=== PATIENT | female | born 1980 | race Caucasian/White ===

== ENCOUNTER 2016-12-26 10:06 | Observation (INO) | payer OTHER ==
[2016-12-26] MEDS ORDERED: DEXAMETHASONE 4 MG TABLET ONE (10:20)
[2016-12-26] MEDS ORDERED: ALBUTEROL/IPRATROPIUM 2.5/0.5 MG 3 ML/EACH DOSE ONE ×2 (10:28→11:56)
[2016-12-26] MEDS ORDERED: LACTATED RINGERS 1,000 ML ONE (12:28)
[2016-12-26] MEDS ORDERED: ALBUTEROL SULFATE 5MG/ML INHALANT 20 ML BOT ONE (12:43)
[2016-12-26] MEDS ORDERED: IPRATROPIUM BROMIDE 0.5 MG/2.5 ML DOSE ONE (12:43)
[2016-12-26 13:46] LABS: ARTERIAL BLOOD GAS pH 7.581 (7.350-7.450)
[2016-12-26 13:47] LABS: ARTERIAL BLOOD GAS BASE EXCESS -2.7 mmol/L (-2.0-2.0); ARTERIAL BLOOD GAS HCO3 16.4 mmol/L (22.0-28.0); ARTERIAL BLOOD GAS PCO2 17.8 mmHg (35.0-45.0); ARTERIAL BLOOD GAS PO2 80.2 mmHg (80.0-90.0)
[2016-12-26 14:26] LABS: ABSOLUTE NEUTROPHIL COUNT 7.9 K/mm3 (1.8-7.7); BASO # 0.1 K/mm3 (0.0-0.2); BASO % 0.5 % (0.2-1.0); EOS # 0.5 (0.0-0.5); EOS % 5.4 % (0.9-2.9); HEMATOCRIT 42.1 % (37.0-47.0); IMM NEUT% 0.3 % (0-1); LYMPH % 10.1 % (15-45); MEAN CELL VOLUME 93.6 fl (81.0-99.0); MEAN CORPUSCULAR HEMOGLOBIN 31.1 pg (27.0-31.0); MEAN CORPUSCULAR HGB CONC 33.3 g/dl (33.0-37.0); MEAN PLATELET VOLUME 8.7 fl (7.4-10.4); MONO # 0.2 (0.0-0.8); MONO % 2.3 % (4-12); NEUT % 81.4 % (43-75); PLATELET COUNT 298 K/mm3 (130-400); RED CELL DISTRIBUTION WIDTH 12.2 % (11.5-14.5)
[2016-12-26 14:39] LABS: ALB/GLOB RATIO 1.3 (>1.0); ALBUMIN 4.2 gm/dL (3.5-5.7); CALCIUM 10.1 mg/dL (8.6-10.3)
--- NOTE | 2016-12-26 15:58 | RAD ---
12/26/2016 3:54 PM CHEST - 2 VIEWS History: Dyspnea. History of asthma. Comparison: None Findings: Two views of the chest are obtained. The lungs are clear with out effusion or pneumothorax. The cardiomediastinal silhouette is unremarkable.. The osseous structures are intact.. IMPRESSION: No acute intrathoracic process.
[2016-12-26] MEDS ORDERED: ACETAMINOPHEN 325 MG TABLET PO PRN (16:09)
[2016-12-26] MEDS ORDERED: SODIUM CHLORIDE 0.9% 100 ML IV PRN (16:09)
[2016-12-26] MEDS ORDERED: BLISTEX LIPSTICK 1 EACH TP PRN (16:09)
[2016-12-26] MEDS ORDERED: MENTHOL/CETYLPYRD 1 EACH LOZENGE PO PRN (16:09)
[2016-12-26] MEDS ORDERED: MAGNESIUM HYDROXIDE 30 ML UDCUP PO PRN (16:09)
[2016-12-26] MEDS ORDERED: SUMATRIPTAN SUCCINATE 50 MG TABLET PO PRN (16:11)
[2016-12-26] MEDS ORDERED: CYCLOBENZAPRINE HCL 10 MG TABLET PO PRN (16:11)
[2016-12-26 16:13] VITALS: BMI 26.1
[2016-12-26] MEDS ORDERED: HYDROXYZINE HCL 25 MG TABLET PO PRN (16:13)
[2016-12-26] MEDS ORDERED: TRAZODONE HCL 50 MG TABLET PO PRN (16:26)
[2016-12-26] MEDS ORDERED: ALBUTEROL NEB 2.5 MG/3 ML VIAL.NEB NEB PRN (16:34)
[2016-12-26] MEDS: ALBUTEROL/IPRATROPIUM 2.5/0.5 MG 3 ML/EACH DOSE NEB SCH ×2 (17:34→23:03)
--- NOTE | 2016-12-26 17:42 | HP ---
ALICIA HERNÁNDEZ [facility] [id number] DATE OF ADMISSION: 12/26/2016 CHIEF COMPLAINT: Asthma. HISTORY OF PRESENT ILLNESS: The patient is a 36-year-old female with a long history of asthma since childhood, which worsened somewhat in her 20's and 30's. More recently it has worsened over the last month, and she quit smoking a month ago when she was noticing difficulty. She notes her breathing difficulty has been fairly steady. It does not wax and wane substantially. She notes decreased activity tolerance, feels as if she has run a marathon and feeling fatigued. She has not noticed a fever. She has had no sputum produced. No others have been effected by similar symptoms. She notes noisy breathing with wheezing and feels that she gets short of breath if she walks more than a couple of blocks. She had actually seen Urgent Care a couple of weeks ago and had a course of prednisone which may have helped modestly, but she is still having symptoms at this time. She has also used Combivent and uses Symbicort as well. PAST MEDICAL HISTORY: Remarkable for: 1. Asthma. 2. Depression and anxiety. 3. A history of alcoholism, now abstinent for greater than a year, on Antabuse. PAST SURGICAL HISTORY: 1. x 3. 2. Tubal ligation. ALLERGIES: No known drug allergies. MEDICATIONS: 1. Citalopram 20 mg daily. 2. Antabuse 500 mg by mouth every A.M. 3. Combivent as needed. 4. Imitrex as needed. 5. Cyclobenzaprine as needed. 6. Symbicort 80 two puffs twice a day. 7. Trazodone 100 mg at bedtime. 8. Multivitamin. 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 She has been 20 years and has three kids. Her works at [employer]. The kids are 18, 14 and 9. She quit smoking about a month ago. She quit alcohol a year ago. Some remote history of other substance abuse in the remote past, but no inhaled chemicals or other initiating events noted. Hobbies include coloring and her kids. She has a dog part-time. FAMILY HISTORY: Father at 77 of cancer of the lung. Mom at 57 of uterine cancer. REVIEW OF SYSTEMS: HEENT - eyes have been okay. Ears okay. Nose has been okay. Mouth is okay. Neck - okay. Lungs - have given her some respiratory trouble, but she has had no previous hospitalizations for asthma. Heart - she notes that heart will speed-up some and has done this intermittently since she was a child, but has not had any extensive evaluation or been prescribed any medications for this. GI - stomach has been okay. No vomiting, no constipation and no diarrhea. DINING CAR HOP - she is not nursing. She is not . Last month's period was about a month ago. Her periods are generally regular. - no urinary complaints. Extremities - legs have been okay. Arms have been okay. Neurologic - no complaints. PHYSICAL EXAMINATION: GENERAL: Nontoxic female, breathing deeply. VITAL SIGNS: Temperature 97.9. Blood pressure 123/90. Heart rate 125. Respirations 20. Saturation 96% on room air, although follow-up one shows 92% on room air. NECK: Supple. No JVD is noted. LUNGS: Scattered wheezes bilaterally, polyphonic. No crackles are noted. HEART: Tachycardiac, but regular. No murmur is noted. ABDOMEN: Soft, nontender and nondistended. Bowel sounds are normal. No rebound and no guarding. GENITOURINARY: Exam is deferred. BREASTS: Exam is deferred. EXTREMITIES: No cyanosis, clubbing or edema. Pulses are good. Perfusion is good. NEUROLOGIC: Patient is alert. Slightly anxious, but no neurologic deficiency noted. LABS: White count 9.7, hemoglobin 14.0 and platelets 298. D-dimer is less than 0.19. Her pH is 7.581. PC02 is 17.8, P02 of 80.2, bicarbonate 16.4 and base excess -2.7. Sodium 135, potassium 4.5, chloride 104, C02 of 19, BUN of 9, creatinine 0.9 and glucose 91. Calcium is 10.1. LFTs are normal. Troponin less than 0.01. HCG is negative. Lipase is 7. BNP is 10. IMAGING: Chest x-ray on preliminary review is normal. EKG: Pending. ASSESSMENT/PLAN: 1. Exacerbation of moderate persistent asthma, now with respiratory distress. No previous hospitalizations, but has been on prednisone earlier this month. We will be checking peak flows. Plan prednisone. Plan nebulizer treatments. Reassess in the morning. 2. History of alcoholism, with abstinence for the last year. She would like to continue on Antabuse, and this will be ordered. We will try to avoid benzodiazepines or narcotics for now, and consider an antihistamine as needed for anxiety. Will be continuing on the citalopram and consider PRN hydroxyzine. Will be checking an EKG to assess the QT interval because of the possible drug interaction with citalopram and hydroxyzine, but do not anticipate that this should be a problem. 3. History of tachycardia. Check telemetry and a TSH. 4. Code status. The patient is an ambulatory observation patient, so we are not expecting a need for anticoagulation. Code status is anticipated to be full. cc: Dr. Halle Tang
[2016-12-26] MEDS: MONTELUKAST SODIUM 10 MG TABLET PO SCH (17:47)
[2016-12-26] MEDS ORDERED: PNEUMOCOCCAL 23-VAL P-SAC VAC 0.5 ML VIAL IM V ONE (20:00)
[2016-12-26] MEDS ORDERED: FORMOTEROL IH SCH (21:00)
[2016-12-26] MEDS ORDERED: BUDESONIDE IH SCH (21:00)
[2016-12-26] MEDS ORDERED: HYDROCODONE/ACETAMINOPHEN 5/325MG TABLET PO PRN (21:13)
[2016-12-26] MEDS: FLUTICASONE/SALMETEROL 100/50 14 PUFF/EACH DISK IH SCH (21:19)
[2016-12-27] MEDS: ALBUTEROL/IPRATROPIUM 2.5/0.5 MG 3 ML/EACH DOSE NEB SCH ×2 (05:55→11:52)
--- NOTE | 2016-12-27 07:48 | PDOC43 ---
- Subjective Chief Complaint: Asthma Patient reports having some leg cramps last night, did get 2 pain pills, better today. Leg pains are atypical for her. Some headache this am, took an imitrex. VERAS not uncommon for her. Breathing better, Peak flows in the 190-200 range. Predicted is 485 for her, so less than 50%. - Objective Vital Signs Temperature 97.7 F 12/27/16 04:12 Pulse Rate 108 12/27/16 05:00 Respiratory Rate 18 12/27/16 05:29 Blood Pressure 107/75 12/27/16 04:12 O2 Saturation by Pulse Oximetry 96 12/27/16 04:12 Oxygen Delivery Method Room Air Oxygen Flow Rate 0 Vital Signs Last 12 Hours Temp Pulse Resp BP Pulse Ox 12/27/16 05:29 18 12/27/16 05:00 108 24 12/27/16 04:12 97.7 F 88 18 107/75 96 12/27/16 00:21 97.2 F 81 18 103/68 94 12/26/16 23:05 96 18 12/26/16 22:21 20 Intake and Output 12/25/16 12/26/16 12/27/16 23:59 23:59 23:59 Intake Total 200 Output Total 300 500 Balance -300 -300 General: Alert, Cooperative, No Acute Distress Lungs: Other (bilat wheezes, improved. Work of breathing appears much better.) Cardiovascular: Regular Rate and Rhythm Abdomen: Soft, Normal Bowel Sounds, Non-Distended Extremities: No Edema, No Tenderness Neurological: Normal Speech Psych/Mental Status: Normal Affect, Normal Mood No labs ordered for today. Current Medications: Current meds reviewed in EMR. Active Medications Acetaminophen (Tylenol) 650 mg PO Q6H PRN PRN Reason: Pain or Temperature > 100.5 F Last Admin: 12/26/16 19:13 Dose: 650 mg Acetaminophen/Hydrocodone Bitart ([place] 5/325) 1 - 2 tab PO Q6H PRN PRN Reason: Pain Last Admin: 12/26/16 21:20 Dose: 2 tab Albuterol Sulfate (Ventolin Inhalation Solution (Dose)) 2.5 mg NEB Q2H PRN PRN Reason: Wheezing Albuterol/Ipratropium (Duoneb) 3 ml NEB Q6HR JULIET Last Admin: 12/27/16 05:55 Dose: 3 ml Benzocaine/Menthol (Cepacol) 1 each PO PRN PRN PRN Reason: Sore Throat Citalopram Hydrobromide (Celexa) 20 mg PO DAILY [facility] Cyclobenzaprine HCl (Flexeril) 10 mg PO TID PRN PRN Reason: Muscle spasm Last Admin: 12/26/16 19:15 Dose: 10 mg Hydroxyzine HCl (Atarax) 25 mg PO QID PRN PRN Reason: Anxiety Last Admin: 12/26/16 17:47 Dose: 25 mg Sodium Chloride (Sodium Chloride 0.9%) 100 mls @ 25 mls/hr IV PRN PRN PRN Reason: Flush Magnesium Hydroxide (Milk Of Magnesia) 30 ml PO DAILY PRN PRN Reason: Constipation Miscellaneous (Disulfiram [Antabuse 500 Mg]) 500 mg PO DAILY [facility] Montelukast Sodium (Singulair) 10 mg PO DAILY [facility] Last Admin: 12/26/16 17:47 Dose: 10 mg Petrolatum/Paraffin/Mineral Oil (Blistex) 1 each TP PRN PRN PRN Reason: Dry and/or chapped lips Prednisone (Prednisone) 60 mg PO QAM [facility] Fluticasone/Salmeterol (Advair 100/50 Diskus) 1 puff IH BID [facility] Last Admin: 12/26/16 21:19 Dose: 1 puff Sodium Chloride (Normal Saline 10ml Flush) 10 - 50 ml IV PRN PRN PRN Reason: IV Flush Sodium Chloride (Normal Saline 10ml Flush) 10 ml IV Q8HR [facility] Last Admin: 12/27/16 01:04 Dose: Not Given Sumatriptan Succinate (Imitrex) 50 mg PO X1 PRN PRN Reason: Headache Last Admin: 12/27/16 06:35 Dose: 50 mg Trazodone HCl (Desyrel) 100 mg PO BEDTIME PRN PRN Reason: Insomnia Last Admin: 12/26/16 22:32 Dose: 100 mg - Problems: Assessment/Plan (1) Asthma exacerbation Status: AcuteAssessment/Plan: Clinically improved, but peak flows currently 200/485. Continue prednisone, added Singulair, continue nebs. VTE Prophylaxis: Ambulatory patient, felt to be low risk for VTE. Disposition: Anticipate return to home; possibly later today, but probably tomorrow 4/3.
[2016-12-27] MEDS: FLUTICASONE/SALMETEROL 100/50 14 PUFF/EACH DISK IH SCH (08:36)
[2016-12-27] MEDS: MONTELUKAST SODIUM 10 MG TABLET PO SCH (08:36)
[2016-12-27] MEDS ORDERED: CITALOPRAM HYDROBROMIDE 20 MG TABLET PO SCH (09:00)
[2016-12-27] MEDS ORDERED: PREDNISONE 20 MG TABLET PO SCH (09:00)
[2016-12-27 11:30] VITALS: BP 104/72
--- NOTE | 2016-12-27 15:02 | DS ---
ALICIA HERNÁNDEZ [id number] ADMIT DATE: 12/26/2016 DISCHARGE DATE: 12/27/2016 ADMIT DIAGNOSIS: Asthma exacerbation. DISCHARGE DIAGNOSIS: Asthma exacerbation. ADMIT HISTORY AND PHYSICAL: Please see Dr. Awad's note for details. BRIEFLY: Alicia is a 36-year-old female with a long-standing history of moderate persistent asthma. She had been having increasing shortness of breath over the last few weeks. She discontinued smoking about a month ago. Her symptoms got significantly worse, and she presented to the emergency room for evaluation. In the emergency room, she was found to be in mild to moderate respiratory distress with asthma exacerbation. She was subsequently admitted to the Hospitalist service. HOSPITAL COURSE: She was admitted, treated with steroids, nebulizers, et cetera. She actually had a pretty prompt improvement. She had no oxygen requirement throughout her time here. By the morning of discharge her peak flows were up in to the 200 range with a predicted in the high 400s, and she was feeling significant better. We continued to observe her for the next several hours, and by the afternoon of discharge, her peak flows were into the high 200s with a predicted in the high 400s. She was feeling significantly better and wishing to go home. She still does feel a bit more winded than is baseline, but is significantly improved. It is felt that she is safe to go home to continue treatment at home. DISCHARGE MEDICATIONS: 1. Prednisone taper 20 mg tablets 3 by mouth every day x4 days, and 2 by mouth every day x4 days, and 1 by mouth every day x4 days, and 1/2 by mouth every day x4 days and then off. 2. Duoneb every 4 to 6 hours as needed in her home nebulizer. 3. Flexeril 10 mg by mouth three times a day as needed. 4. Imitrex as needed - prior to admit. 5. Trazodone 100 mg by mouth at bedtime. 6. Citalopram 20 mg by mouth every day. 7. Antabuse 500 mg by mouth every day. 8. Ventolin metered dose inhaler as needed. 9. Combivent metered dose inhaler as needed. 10. Singulair 10 mg by mouth every day. 11. Symbicort 80/4.5 inhaled twice a day. DISCHARGE FOLLOW UP: With her primary care physician next week, Dr. Tang. Follow up sooner as needed. AUGUSTIN/vibha Cc: Dr. Halle Tang
== END 2016-12-27 14:00 | disposition home or self-care (01) ==
LOC: ED 10:06 → MS 15:35
PROVIDERS: ADMIT Family Medicine; ATTEND Family Medicine
DX: J45.901 Unspecified asthma with (acute) exacerbation (principal); F41.8 Other specified anxiety disorders; F10.21 Alcohol dependence, in remission; Z87.891 Personal history of nicotine dependence
CPT/HCPCS: 83690; 83880; 85379; 84703; 82803; 85025; 80053; 84484; 71020; 94640 ×6; 94664; 36600; 94644; 99284; 96360; 96361; 93005; 99285; A9270 ×9; J3410; J7645; J7512 ×2; J7120